=== PATIENT | female | born 1945 | race Caucasian/White ===

== ENCOUNTER → 2017-07-20 | Day surgery (SDC) | payer MEDICARE, BC ==
[~2017-07-20] VITALS: Ht 162.6 cm; Wt 57.0 kg
[~2017-07-20] MED LIST: AMPICILLIN/SULBAC 3 GM/NS 100 ML IV SCH; BACITRACIN TOP OINT 15 GM TUBE ONE; CHLORHEXIDINE GLUCONATE 2 % 1 PACK (2 CLOTHS) TOPICAL PRN; FAMOTIDINE 20 MG/2 ML VIAL ONE; FLUT50SP EACH NARE; INSULIN HUMAN REGULAR 1,000 UNITS/10 ML VIAL SQ PRN; LACTATED RINGER'S 1000 ML IV PRN; METOPROLOL TARTRATE 25 MG TAB PO PRN; MIDAZOLAM HCL 2 MG/2 ML VIAL ONE; OFLOXACIN 0.3% OPTH SOLN 5 ML BTL ONE; ONDANSETRON HCL 4 MG/2 ML VIAL IV PUSH ONE; POVIDONE IODINE 5% (ANTISEPSIS KIT) 4 APPLICATIONS EACH NARE PRN; PROPOFOL 200 MG/20 ML AMP IV ONE; PROZ40CA PO; SODIUM CHLORID 0.9% 500 ML IV PRN; TOBRO EACH EYE
[2017-07-20 12:07] VITALS: PULSE 77
[2017-07-20 12:45] VITALS: PULSE 67; TEMP 98.1
[2017-07-20 13:15] VITALS: BP 103/81; PULSE 67; RESP 14; O2SAT 98
--- NOTE | 2017-07-21 17:27 | EKG ---
Date Performed: 07/20/2017 Time Performed: 11:23:04 PTAGE: 71 years EKG: Sinus rhythm WITH OCCASIONAL VENTRICULAR PREMATURE COMPLEXES BORDERLINE ECG NO PREVIOUS TRACING DOCTOR: Hi Beth Interpretating Date/Time 07/21/2017 17:47:25
--- NOTE | 2017-07-29 15:43 | MP ---
cc: MAGDALENA TORIBIO M.D. DATE OF SURGERY: July 20, [address] Magdalena Toribio. PREOPERATIVE DIAGNOSIS 1. Eustachian tube dysfunction. 2. Bilateral middle ear effusion. 3. Conductive hearing loss bilateral. POSTOPERATIVE DIAGNOSIS 1. Eustachian tube dysfunction. 2. Bilateral middle ear effusion. 3. Conductive hearing loss bilateral. OPERATION PERFORMED Bilateral myringotomy with placement of T-type pressure equalizing tubes. INDICATIONS Documented in the history and physical. DESCRIPTION OF OPERATION The patient was taken to OR #2 and placed in the supine position. Following induction of general anesthesia and intubation using laryngeal mask apparatus the right ear was examined under microscope and cleaned with a curette. Myringotomy was made in the posterior inferior quadrant and the tympanum was aspirated of the serous effusion. The T-type pressure equalizing tube was then placed into the opening of the canal, was filled with Floxin otic drops. Cotton ball was placed in the meatus. The left ear was then operated in the same fashion with the same findings and the procedure was terminated. The patient was reversed from anesthesia and taken to recovery in good condition. No complications. Blood loss less than 5 mL. MD MISTY Larsen/ANGELIA /8:57 AM /3:26 PM
== END | disposition home or self-care (01) ==
LOC: PHSDC 10:42
PROVIDERS: ATTEND Otolaryngology
DX: H69.83 Other specified disorders of Eustachian tube, bilateral (principal); H90.0 Conductive hearing loss, bilateral; K21.9 Gastro-esophageal reflux disease without esophagitis; Z01.810 Encounter for preprocedural cardiovascular examination
CPT/HCPCS: 00126; 69436; 93005; J0295; J2250; J2405; J7120